=== PATIENT | male | born 2005 | race Caucasian/White ===

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

== ENCOUNTER 2024-09-24 22:44 | Emergency (ER) | payer SELFPAY ==
[~2024-09-24] VITALS: Ht 175.2 cm; Wt 78.6 kg
[2024-09-24] MEDS ORDERED: IOHEXOL 300 MG/ML 100 ML VIAL IV ONE (23:05)
[2024-09-24 23:14] LABS: BASO % 0.3 % (0.0-1.0); EOS % 0.4 % (1.0-4.0); HEMATOCRIT 42.3 % (42.0-52.0); MEAN CORPUSCULAR HGB 30.8 pg (27.0-31.0); MEAN CORPUSCULAR HGB CONC 33.8 g/dl (33.0-37.0); MEAN PLATELET VOLUME 10.7 fl (9.6-12.3); MONO # 0.5 10*3/uL (0.1-1.0); MONO % 5.2 % (3.0-9.0); NEUT # 7.7 10*3/uL (2.3-7.9); NEUT % 74.5 % (47.0-73.0); PLATELET COUNT AUTOMATED 210 10*3/uL (130-400); RED BLOOD COUNT 4.65 10*6/uL (4.50-5.90); RED CELL DISTRI WIDTH 12.5 % (0-14.5); WHITE BLOOD COUNT 10.3 10*3/uL (4.8-10.8)
[2024-09-24] MEDS ORDERED: IOHEXOL 300 MG/ML 100 ML VIAL ONE (23:25)
[2024-09-25] MEDS ORDERED: Ketorolac Tromethamine 30 MG/ML VIAL IV ONE (03:35)
[2024-09-25] MEDS ORDERED: METHOCARBAMOL 500 MG TAB PO ONE (03:35)
[2024-09-25] MEDS ORDERED: NAPROXEN250 MG PO (03:42)
[2024-09-25] MEDS ORDERED: METHOCARBAMOL500 M1 PO (03:42)
== END 2024-09-25 03:53 | disposition home or self-care (01) ==
LOC: ED 22:44
PROVIDERS: Internal Medicine
DX: S01.511A Laceration without foreign body of lip, initial encounter (principal); S20.221A Contusion of right back wall of thorax, initial encounter; M25.512 Pain in left shoulder; Z79.899 Other long term (current) drug therapy; V86.95XA Unspecified occupant of 3- or 4- wheeled all-terrain vehicle (ATV) injured in nontraffic accident, initial encounter; Y93.89 Activity, other specified; Y92.488 Other paved roadways as the place of occurrence of the external cause; Y99.8 Other external cause status

== ENCOUNTER 2024-10-02 07:06 | Emergency (ER) | payer SELFPAY ==
[~2024-10-02] VITALS: Ht 175.2 cm; Wt 81.6 kg
[~2024-10-02 07:06] MED LIST changes: +METHOCARBAMOL500 M1 PO; +NAPROXEN250 MG PO
== END 2024-10-02 07:38 | disposition home or self-care (01) ==
LOC: ED 07:06
DX: S01.511D Laceration without foreign body of lip, subsequent encounter (principal); Z48.02 Encounter for removal of sutures; Z79.899 Other long term (current) drug therapy; V86.59XD Driver of other special all-terrain or other off-road motor vehicle injured in nontraffic accident, subsequent encounter